=== PATIENT | male | born 1985 | race African-American/Black ===

== ENCOUNTER 2016-09-21 07:38 | Emergency (ER) | payer SELFPAY ==
[2016-09-21] MEDS ORDERED: NORMAL SALINE 1000 ML 1,000 ML IV ONE (08:26)
[2016-09-21] MEDS ORDERED: ACETAMINOPHEN 325 MG TABLET PO ONE (08:37)
--- NOTE | 2016-09-21 08:40 | ER Document Report ---
ED General - General TRAVEL OUTSIDE OF THE [place] IN LAST 30 DAYS: No <ALLAN ENGLISH - Last Filed: 09/21/16 10:28> <TAVON BERRIOS - Last Filed: 09/21/16 14:39> - General Chief Complaint: Cough Stated Complaint: COUGH/CONGESTION Time Seen by Provider: 09/21/16 07:59 - HPI Notes: Patient is a 30-year-old male presents to the ED complaining of a dry semi- productive cough, nasal congestion/discharge, decreased appetite 1 week. Patient states that his symptoms have worsened over the last 3 days with the development of fever and body aches. Pt does report occ sharp pain on the left side with deep inspirations. He notes one episode of scant blood at the end of a coughing fit yesterday. Patient reports using [id number] medicine with minimal relief. He did take some Vicodin this morning for his discomfort. He has not had any Tylenol or Motrin this morning. Patient also reports having dark urine despite continued PO intake. Patient is a smoker with no signficant PMH/med allergies. he does not take any daily po meds. Denies any sore throat , ear pain, headache, neck pain, trouble breathing, sob, dyspnea, wheezing, abd pain, n/v/d, dysuria, hematuria, flank pain, or rash. (ALLAN ENGLISH) - Related Data Allergies/Adverse Reactions: No Known Allergies Allergy (Verified 09/21/16 07:44) Past Medical History - Social History Smoking Status: Current Every Day Smoker Family History: Reviewed & Not Pertinent Patient has suicidal ideation: No Patient has homicidal ideation: No Renal/ Medical History: Denies: Hx Peritoneal Dialysis Surgical Hx: Negative <ALLAN ENGLISH - Last Filed: 09/21/16 10:28> Review of Systems <ALLAN ENGLISH - Last Filed: 09/21/16 10:28> <TAVON BERRIOS - Last Filed: 09/21/16 14:39> - Review of Systems Notes: REVIEW OF SYSTEMS: CONSTITUTIONAL : see hpi EENT: see hpi. CARDIOVASCULAR: see hpi Denies palpitations or racing or irregular heart beat. Denies ankle edema. RESPIRATORY: see hpi GASTROINTESTINAL: Denies abdominal pain or distention. Denies nausea, vomiting , or diarrhea. Denies blood in vomitus, stools, or per rectum. Denies black, tarry stools. Denies constipation. GENITOURINARY: Denies difficulty urinating, painful urination, burning, frequency, blood in urine, or discharge. MUSCULOSKELETAL: Denies back or neck pain or stiffness. Denies joint pain or swelling. SKIN: Denies rash, lesions or sores. NEUROLOGICAL: Denies confusion or altered mental status. Denies passing out or loss of consciousness. Denies dizziness or lightheadedness. Denies headache. Denies weakness or paralysis or loss of use of either side. Denies problems with gait or speech. Denies sensory loss, numbness, or tingling. ALL OTHER SYSTEMS REVIEWED AND NEGATIVE. Dictation was performed using [employer] voice recognition software (ALLAN ENGLISH) Physical Exam <ALLAN ENGLISH - Last Filed: 09/21/16 10:28> <TAVON BERRIOS - Last Filed: 09/21/16 14:39> - Vital signs Vitals: Temp Pulse Resp BP Pulse Ox 101.0 F H 101 H 18 144/92 H 96 09/21/16 07:42 09/21/16 07:42 09/21/16 07:42 09/21/16 07:42 09/21/16 07:42 Notes: PHYSICAL EXAMINATION: GENERAL: Well-appearing, well-nourished and in no acute distress. HEAD: Atraumatic, normocephalic. EYES: Pupils equal round and reactive to light, extraocular movements intact, sclera anicteric, conjunctiva are normal. ENT: EAC clear b/l. TM's intact b/l without erythema, fluid, or perforation. Nares patent and with clear/yellow discharge. oropharynx clear without exudates. No tonsilar hypertrophy or erythema. Moist mucous membranes. No sinus tenderness. NECK: Normal range of motion, supple without lymphadenopathy. No rigidity/ meningismus LUNGS: Breath sounds clear to auscultation bilaterally and equal. No wheezes rales or rhonchi. HEART: Regular rate and rhythm without murmurs, rubs, gallops. ABDOMEN: Soft, nontender, nondistended abdomen. No guarding, no rebound. No masses appreciated. Normal bowel sounds present. No CVA tenderness bilaterally. Musculoskeletal: FROM to passive/active. Strength 5+/5. Extremities: No cyanosis, clubbing, or edema b/l. Peripheral pulses 2+. Capillary refill less than 3 seconds. PSYCH: Normal mood, normal affect. SKIN: Warm, Dry, normal turgor, no rashes or lesions noted. (ALLAN ENGLISH) Course - Laboratory Result Diagrams: 09/21/16 08:51 09/21/16 08:51 <ALLAN ENGLISH - Last Filed: 09/21/16 10:28> - Laboratory Result Diagrams: 09/21/16 08:51 09/21/16 08:51 <TAVON BERRIOS - Last Filed: 09/21/16 14:39> - Re-evaluation Re-evalutation: 09/21/16 09:45 Patient is a mildly febrile, well-hydrated, 30yo male who presents with LLL pneumonia based on H&P/CXR. White count is elevated at 27, CMP unremarkable. Vital are otherwise stable and no wheezing was appreciated in the lungs b/l. 1L NS given today. Pt reports improvement in symptoms and states that he is feeling a lot better already. Low suspicion for any pneumothorax, PE, ACS, or dissection based on H&P/work-up today. We will treat as an outpatient due to low risk factors and pt otherwise healthy young adult. I will cover him with an albuterol inhaler as well as doxycycline 100mg PO BID x10 days (patient is self-pay). Pt advised to use sunscreen due to use of doxy. conservative measures for symptoms otherwise. Recheck with PCM in 2-3 days. Return to the ED with worsening symptoms. Pt in agreement. Reviewed with Dr. Berrios who is in agreement with plan/discharge. (ALLAN ENGLISH) - Vital Signs Vital signs: Temp Pulse Resp BP Pulse Ox 99.2 F 81 18 143/96 H 99 09/21/16 10:43 09/21/16 10:43 09/21/16 10:43 09/21/16 10:43 09/21/16 10:43 - Laboratory Laboratory results interpreted by me: 09/21/16 09/21/16 09/21/16 08:47 08:51 08:51 WBC 27.7 H RDW 14.3 H Seg Neuts % (Manual) 86 H Lymphocytes % (Manual) 4 L Abs Neuts (Manual) 23.8 H Abs Monocytes (Manual) 2.8 H Glucose 112 H Urine Protein 100 H Urine Blood MODERATE H Urine Urobilinogen 4.0 H Discharge <ALLAN ENGLISH - Last Filed: 09/21/16 10:28> <TAVON BERRIOS - Last Filed: 09/21/16 14:39> - Discharge Clinical Impression: Pneumonia Qualifiers: Pneumonia type: due to unspecified organism Laterality: left Lung location: lower lobe of lung Qualified Code(s): J18.1 - Lobar pneumonia, unspecified organism Fever Qualifiers: Fever type: due to other condition Qualified Code(s): R50.81 - Fever presenting with conditions classified elsewhere Condition: Stable Disposition: HOME, SELF-CARE Additional Instructions: Maintain adequate fluid intake Take meds as directed tylenol/ibuprofen as needed over the counter cold medication as needed for symptoms Humidified air may help Use inhaler as directed/needed F/u: with your PCM in 2-3 days for a recheck--if unable to establish with a PCM , return to the ED for recheck. Return to the ED with any uncontrollable fever, worsening pain, chest pain, shortness of breath, trouble swallowing/breathing, abdominal pain, n/v/d, or worsening symptoms otherwise that are concerning to you. Pneumonia Your examination indicates that you have pneumonia. This is an infection of the lung tissue, usually caused by bacteria or a virus. Symptoms include cough, fever, shaking chills, chest pain, shortness of breath, and coughing up bloody sputum. Treatment for bacterial pneumonia includes rest, antibiotics for 10 to 14 days, increasing your clear liquid intake, a cool mist humidifier at your bedside, and fever medication. Often, a repeat chest X-ray is performed in a few weeks--even if you feel better--to ascertain whether the infection has completely resolved and no underlying lung problem is present. You should call the physician if you develop persistent vomiting, high fever that does not respond to fever medication, increasing shortness of breath , confusion, or lethargy. Also, failure to improve within two to three days is an indication for re-examination. Prescriptions: Albuterol Sulfate [Proair HFA Inhalation Aerosol 8.5 gm MDI] 2 puff IH Q4H PRN # 1 mdi PRN Reason: Doxycycline Hyclate 100 mg PO BID #20 capsule Forms: Smoking Cessation Education, Elevated Blood Pressure
--- NOTE | 2016-09-21 08:52 | RADIOLOGY REPORT (SQ) ---
EXAM DESCRIPTION: CHEST PA/LAT COMPLETED DATE/TIME: 09/21/2016 8:42 am REASON FOR STUDY: cough COMPARISON: None. TECHNIQUE: Frontal and lateral radiographic views of the chest acquired. NUMBER OF VIEWS: Two view. LIMITATIONS: None. FINDINGS: LUNGS AND PLEURA: Patchy infiltrate noted left base, involving LLL and lingula. Lungs oth erwise clear. No pleural fluid. MEDIASTINUM AND HILAR STRUCTURES: No masses or contour abnormalities. HEART AND VASCULAR STRUCTURES: Heart normal size. No evidence for failure. BONES: No acute findings. HARDWARE: None in the chest. OTHER: No other significant finding. IMPRESSION: Patchy infiltrate left lung base. TECHNICAL DOCUMENTATION: JOB ID: [id number]- All Rights Reserved
[2016-09-21 09:04] LABS: HEMATOCRIT 40.8 % (37.9-51.0); HEMOGLOBIN 14.1 g/dL (13.5-17.0); HGB HCT DIFFERENCE 1.5; MEAN CORPUSCULAR HEMOGLOBIN 31.4 pg (27.0-33.4); MEAN CORPUSCULAR HGB CONC 34.5 g/dL (32.0-36.0); MEAN CORPUSCULAR VOLUME 91 fl (80-97); RED BLOOD COUNT 4.48 10^6/uL (4.35-5.55); RED CELL DISTRIBUTION WIDTH 14.3 % (11.5-14.0); WHITE BLOOD COUNT 27.7 10^3/uL (4.0-10.5)
[2016-09-21 09:15] LABS: APPEARANCE,URINE SLIGHTLY-CLOUDY; BILIRUBIN,URINE NEGATIVE (NEGATIVE); GLUCOSE, URINE NEGATIVE (NEGATIVE); KETONES,URINE NEGATIVE (NEGATIVE); LEUKOCYTE ESTERASE,URINE NEGATIVE (NEGATIVE); NITRITE,URINE NEGATIVE (NEGATIVE); PROTEIN,URINE 100 mg/dL (NEGATIVE); URINE SPECIFIC GRAVITY 1.017
[2016-09-21 09:20] LABS: ALANINE AMINOTRANSFERASE 44 U/L (21-72); ALKALINE PHOSPHATASE 117 U/L (38-126); ANION GAP 16 (5-19); ASPARTATE AMINO TRANSFERASE 34 U/L (17-59); BILIRUBIN,DIRECT 0.4 mg/dL (0.0-0.4); BILIRUBIN,TOTAL 0.9 mg/dL (0.2-1.3); BLOOD UREA NITROGEN 12 mg/dL (7-20); CALCIUM 9.5 mg/dL (8.4-10.2); CARBON DIOXIDE 25 mmol/L (22-30); CHLORIDE 98 mmol/L (98-107); CREATININE RESULT 0.78 mg/dL (0.52-1.25); GLUCOSE 112 mg/dL (75-110); SODIUM 138.5 mmol/L (137-145); TOTAL PROTEIN 7.9 g/dL (6.3-8.2)
[2016-09-21 09:22] LABS: POTASSIUM 3.7 mmol/L (3.6-5.0)
[2016-09-21 09:39] LABS: BASOPHILS % (MANUAL) 0 % (0-2); BURR CELLS SLIGHT; EOSINOPHILS % (MANUAL) 0 % (0-6); LYMPHOCYTES % (MANUAL) 4 % (13-45); POIKILOCYTOSIS SLIGHT; POLYCHROMASIA SLIGHT; TOTAL CELLS COUNTED 100; TOXIC GRANULATION SLIGHT; TOXIC VACUOLATION PRESENT
[2016-09-21 10:44] VITALS: BP 143/96
== END 2016-09-21 10:45 | disposition home or self-care (01) ==
LOC: ER 07:38
DX: J18.1 Lobar pneumonia, unspecified organism (principal); R50.81 Fever presenting with conditions classified elsewhere; R09.81 Nasal congestion; M79.1 Myalgia; F17.200 Nicotine dependence, unspecified, uncomplicated
CPT/HCPCS: 99283; 96360; 36415; 85025; 80053; 81001; 71020; J7030